=== PATIENT | male | born 1995 | race African-American/Black ===

== ENCOUNTER 2018-11-17 13:07 | Emergency (ER) | payer SELFPAY ==
[~2018-11-17] VITALS: Ht 172.7 cm; Wt 74.8 kg
[2018-11-17 13:16] VITALS: BP 140/80
--- NOTE | 2018-11-17 13:30 | PHYS DOC ---
Past Medical History Past Medical History: No Pertinent History Past Surgical History: No Surgical History Drug Use: None Adult General Chief Complaint Chief Complaint: SEXUALLY TRANSMITTED DISEASE HPI HPI Patient is a 23 year old AA male who states he was informed by his partner that he needs to be treated for a sexually transmitted infection. Patient states that he was told she had a bacterial infection, he does not know whether it was gonorrhea or chlamydia. Patient denies any dysuria, irregular penile discharge, abdominal pain, low back pain, dysuria, hematuria, or fevers. States that he would simply like to be treated for an STD. Review of Systems Review of Systems Constitutional: Denies fever or chills [] GI: Denies abdominal pain, nausea, vomiting, or diarrhea [] : Denies dysuria or hematuria [] Musculoskeletal: Denies back pain Integument: Denies rash or skin lesions [] Neurologic: Denies headache Current Medications Current Medications Current Medications Medications (Trade) Dose Ordered Sig/Deborah Start Time Stop Time Status Last Admin Dose Admin Azithromycin (Zithromax) 1,000 mg 1X ONCE 11/17/18 14:00 11/17/18 14:01 Ceftriaxone Sodium (Rocephin Im) 250 mg 1X ONCE 11/17/18 14:00 11/17/18 14:01 Allergies Allergies Allergies Coded Allergies Type Severity Reaction Last Updated Verified No Known Drug Allergies 11/17/18 No Physical Exam Physical Exam Constitutional: Well developed, well nourished, no acute distress, non-toxic appearance. [] HENT: Normocephalic, atraumatic, bilateral external ears normal, nose normal. [] Eyes: conjunctiva normal, no discharge. [] Neck: Normal range of motion, no stridor. [] Lungs & Thorax: Respirations even and unlabored, no retractions, no respiratory distress Skin: Warm, dry, no erythema, no rash. [] Extremities: No cyanosis, ROM intact, no edema. [] Neurologic: Alert and oriented X 3, no focal deficits noted. [] Psychologic: Affect normal, judgement normal, mood normal. [] Current Patient Data Vital Signs Vital Signs Date Time Temp Pulse Resp B/P (MAP) Pulse Ox O2 Delivery O2 Flow Rate FiO2 11/17/18 13:16 98.3 97 20 140/80 (100) 100 Room Air 98.3 EKG EKG [] Radiology/Procedures Radiology/Procedures [] Course & Med Decision Making Course & Med Decision Making Pertinent Labs and Imaging studies reviewed. (See chart for details) dx: Contact with suspected exposure to sexually transmitted infection Patient was treated prophylactically with 250 mg of IM Rocephin, and 1 g of PO Zithromax. Patient was instructed to avoid having intercourse until the results of gonorrhea and chlamydia testing were available, patient was notified that these results would not be available for 48 hours. If one or both of these tests is positive, patient needs to refrain from intercourse for approximately 2 weeks following the treatment of any current partners. [] Dragon Disclaimer Dragon Disclaimer This electronic medical record was generated, in whole or in part, using a voice recognition dictation system. Departure Departure Impression: Primary Impression: Contact with and (suspected) exposure to infections with a predominantly sexual mode of transmission Disposition: 01 HOME, SELF-CARE Condition: STABLE Patient Instructions: Sexually Transmitted Disease, [id number] Additional Instructions: You have been treated for a suspected sexually transmitted infection. Avoid having intercourse until the results of gonorrhea and chlamydia testing are available, these results will not be available for 48 hours. If one or both of these tests is positive, you need to refrain from intercourse for approximately 1 week following the treatment of any current partners. Recommend that you go to your local health department for comprehensive STD screening, return to ER symptoms worsen. GOGO RODRIGUEZ APRN Nov 17, 2018 13:30
[2018-11-17] MEDS ORDERED: AZITHROMYCIN 250 MG TABLET. PO ONE (14:00)
[2018-11-17] MEDS ORDERED: cefTRIAXone IM 250 MG VIAL IM ONE (14:00)
== END 2018-11-17 13:51 | disposition home or self-care (01) ==
LOC: ER 13:07
DX: Z20.2 Contact with and (suspected) exposure to infections with a predominantly sexual mode of transmission (principal)
CPT/HCPCS: 96372; 99283; J0696; Q0144; 87491; 87591